=== PATIENT | male | born 1995 | race Caucasian/White ===

== ENCOUNTER 2021-11-27 14:58 | Emergency (ER) | payer SELFPAY ==
[~2021-11-27] VITALS: Ht 177.8 cm; Wt 68.0 kg
[2021-11-27 15:03] VITALS: BP 132/60
[2021-11-27] MEDS ORDERED: CEFAZOLIN 1000MG PREMIX 50 ML IV ONE (16:30)
[2021-11-27] MEDS ORDERED: SODIUM CHLORIDE 0.9% 1,000 ML IV ONE (16:30)
[2021-11-27] MEDS ORDERED: ACETAMINOPHEN 325MG TABLET PO ONE (16:30)
== END 2021-11-27 16:44 | disposition left against medical advice (07) ==
LOC: ER 14:58
DX: S61.432A Puncture wound without foreign body of left hand, initial encounter (principal); W32.0XXA Accidental handgun discharge, initial encounter; Y93.89 Activity, other specified; Y92.488 Other paved roadways as the place of occurrence of the external cause
CPT/HCPCS: 99283; J7030

== ENCOUNTER 2021-12-14 21:35 | Emergency (ER) | payer MEDICAID | END 2021-12-14 21:50 | disposition left against medical advice (07) | LOC: ER 21:35 | DX: Z53.21 Procedure and treatment not carried out due to patient leaving prior to being seen by health care provider (principal) ==